=== PATIENT | female | born 1980 | race Caucasian/White ===

== ENCOUNTER 2017-02-04 08:15 | Emergency (ER) | payer OTHER ==
[2017-02-04] MEDS ORDERED: EPINEPHrine AMP 1 MG/ML SUBCUT ONE (08:25)
[2017-02-04] MEDS ORDERED: Famotidine IV* 10 MG/ML 2 ML (20 mg) IV SLOW PU ONE (08:25)
[2017-02-04] MEDS ORDERED: Dexamethasone IV* 4 MG/ML 5 ML VIAL (20 MG) IVPB ONE (08:25)
[2017-02-04] MEDS ORDERED: NS 0.9% 1000 ML* 1,000 ML IV ONE (08:26)
[2017-02-04 12:04] VITALS: BP 116/73
--- NOTE | 2017-02-05 15:39 | ED ---
Lisa Contreras Auryana, scribed for Sesar Serrano MD on 02/04/17 at 0927 . Allergic Reaction/Systemic - HPI Summary HPI Summary: 36 year old female presents to the ED s/p bee/wasp sting while on a bike ride this morning. 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 She also has SOB, pruritus behind the ears, dizziness - believes due to Benadryl, and reports that her lips "feel weird" but denies any lip swelling. 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 PMHx is significant for anaphylaxis to bee stings. - History of Current Complaint Chief Complaint: EDAllergicReaction Time Seen by Provider: 02/04/17 08:21 Hx Obtained From: Patient Hx Last Menstrual Period: ON CONTINUOUS CONTROL Onset/Duration: Sudden Onset, Started hours ago, Still Present Timing: Constant Severity Initially: Moderate Severity Currently: Moderate Pain Intensity: 5 Pain Scale Used: 0-10 Numeric Location: Discrete @ - chest Character: Pruritus - behind ears Associated Signs And Symptoms: Positive: Difficulty Breathing - SOB, Other: - dizziness, reports "lips feel weird". Negative: Throat Tightening - Related Hx Possible Reaction To: Insect - bee/wasp - Allergies/Home Medications Allergies/Adverse Reactions: Allergies Allergy/AdvReac Type Severity Reaction Status Date / Time Adhesive Tape Allergy Blisters Verified 02/08/16 18:48 Bee Venom Allergy Swelling Verified 02/08/16 18:48 CHLORPREP Allergy Severe Rash Uncoded 02/08/16 18:48 PMH/Surg Hx/FS Hx/Imm Hx Musculoskeletal History: Denies: Hx Rheumatoid Arthritis, Hx Osteoporosis - Surgical History Surgery Procedure, Year, and Place: LAPAROSCOPY TO REMOVE ADHESIONS FROM ENDOMETRIOSIS, BENIGN LUMPECTOMY Infectious Disease History: Denies: Traveled Outside the [place] in Last 30 Days - Family History Known Family History: Positive: Other - history of allergic reactions to bee venom Negative: Cardiac Disease, Hypertension, Diabetes - Social History Alcohol Use: Occasionally Alcohol Amount: TWICE PER WEEK Substance Use Type: Reports: None Smoking Status (MU): Never Smoked Tobacco Review of Systems Positive: Other - dizziness. Negative: Fever Eyes: Negative Positive: Other - reports lips "feel weird" Cardiovascular: Negative Positive: Shortness Of Breath Gastrointestinal: Negative Genitourinary: Negative Musculoskeletal: Negative Positive: Other - pruritus behind the ears Neurological: Negative Psychological: Normal All Other Systems Reviewed And Are Negative: Yes Physical Exam - Summary Physical Exam Summary: VITAL SIGNS: Reviewed. GENERAL: Patient is a well-developed and nourished female who is lying comfortable in the stretcher. Patient is not in any acute respiratory distress. HEAD AND FACE: No signs of trauma. No ecchymosis, hematomas or skull depressions. No sinus tenderness. EYES: PERRLA, EOMI x 2, No injected conjunctiva, no nystagmus. EARS: Hearing grossly intact. Ear canals and tympanic membranes are within normal limits. MOUTH: Oropharynx within normal limits. No lip swelling, no trismus, no trouble swallowing. NECK: Supple, trachea is midline, no adenopathy, no JVD, no carotid bruit, no c- spine tenderness, neck with full ROM. CHEST: Symmetric, no tenderness at palpation LUNGS: Clear to auscultation bilaterally. No wheezing or crackles. CVS: Regular rate and rhythm, S1 and S2 present, no murmurs or gallops appreciated. ABDOMEN: Soft, non-tender. No signs of distention. No rebound no guarding, and no masses palpated. Bowel sounds are normal. EXTREMITIES: FROM in all major joints, no edema, no cyanosis or clubbing. NEURO: Alert and oriented x 3. No acute neurological deficits. Speech is normal and follows commands. SKIN: Dry and warm. Triage Information Reviewed: Yes Vital Signs On Initial Exam: Initial Vitals Temp Pulse Resp BP Pulse Ox 97.3 F 97 20 138/91 100 02/04/17 08:16 02/04/17 08:16 02/04/17 08:16 02/04/17 08:16 02/04/17 08:16 Vital Signs Reviewed: Yes Diagnostics - Vital Signs Vital Signs Temp Pulse Resp BP Pulse Ox 02/04/17 08:16 97.3 F 97 20 138/91 100 - Laboratory Lab Statement: Any lab studies that have been ordered have been reviewed, and results considered in the medical decision making process. Re-Evaluation - Re-Evaluation First Eval Re-Evaluation Time: 09:28 Change: Improved Comment: Patient refused blood work. Second Eval Re-Evaluation Time: 11:41 - patient is feeling much better Allergic Reaction Course/Dx - Course Assessment/Plan: 36 year old female presents to the ED s/p bee/wasp sting while on a bike ride this morning. 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 She also has SOB, pruritus behind the ears, dizziness - believes due to Benadryl , and reports that her lips "feel weird" but denies any lip swelling. 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 PMHx is significant for anaphylaxis to bee stings. In ED course, she was given Decadron, epinephrine, Pepcid, and held Benadryl, since has already took 100 mg [employer]. Her symptoms resolved, and the patient is feeling better. She declined any blood work. The patient was observed for 4 hours, and the symptoms did not return. Therefore the patient will be discharged home with follow up to PCP. I discussed all the findings and test results with the patient. Patient was instructed to return to the emergency room immediately if any of the symptoms return or worsens. Plan of care was discussed with the patient and understands and agrees. All questions were answered at patient satisfaction. There were no further complaints or concerns. Lung exam before discharge: CTA B/L. Good air exchange. No wheezing or crackles heard. CVS: S1 and S2 present. No murmurs appreciated. Patient is alert and oriented x 3. Patient is hemodynamically stable. Patient will be discharged home with follow up PCP in the next 2-3 days - Diagnoses Differential Diagnosis/HQI/PQRI: Positive: Anaphylaxis, Local Allergic Reaction Provider Diagnoses: Allergic reaction Discharge - Discharge Plan Condition: Stable Disposition: HOME Prescriptions: Epinephrine [Epipen 2-Bull] 0.3 mg IM ONCE PRN #1 kit PRN Reason: Allergy Symptoms Famotidine TAB* [Pepcid 20 MG TAB*] 20 mg PO BID #10 tab diPHENhydraMINE PO* [Benadryl PO 25 MG TAB*] 25 mg PO TID PRN #30 tab PRN Reason: Allergy Symptoms predniSONE TAB* [Deltasone TAB*] 40 mg PO DAILY #8 tab Patient Education Materials: Anaphylaxis (ED), General Allergic Reaction (ED) Referrals: Jayda Fall MD [Primary Care Provider] - 2 Days Additional Instructions: 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 The documentation as recorded by the Lisa campa Auryana accurately reflects the service I personally performed and the decisions made by , Sesar Serrano MD.
== END 2017-02-04 12:03 | disposition home or self-care (01) ==
LOC: ED 08:15
DX: T78.40XA Allergy, unspecified, initial encounter (principal); R06.02 Shortness of breath; R42 Dizziness and giddiness; W57.XXXA Bitten or stung by nonvenomous insect and other nonvenomous arthropods, initial encounter
CPT/HCPCS: 96365; 96375; 99283; J0171

== ENCOUNTER 2018-07-04 11:49 | Emergency (ER) | payer OTHER ==
[2018-07-04] MEDS ORDERED: NS 0.9% 1000 ML* 1,000 ML IV ONE (12:59)
[2018-07-04] MEDS ORDERED: DiMENhydriNATE IV* 50 MG/ML VIAL IV PUSH ONE (13:08)
[2018-07-04 13:12] LABS: ABS Basophils 0 10^3/ul (0-0.2); ABS Eosinophils 0 10^3/ul (0-0.6); ABS Monocytes 0.4 10^3/ul (0-0.8); ABS Neutrophils 4.3 10^3/ul (1.5-7.7); ABS Nucleated RBC 0 10^3/ul; Eosinophil % 0.1 %; Hematocrit 38 % (35-47); Hemoglobin 12.7 g/dl (12.0-16.0); Lymphocyte % 17.4 %; Mean Corpuscular HGB Conc 33 g/dl (31-36); Mean Corpuscular Hemoglobin 32 pg (27-31); Mean Corpuscular Volume 96 fL (80-97); Mean Platelet Volume 7.2 fL (7.4-10.4); Nucleated Red Blood Cells % 0.1; Platelet Count 293 10^3/ul (150-450); Red Blood Count 3.96 10^6/ul (4.00-5.40); Red Cell Distribution Width 13 % (10.5-15); White Blood Count 5.7 10^3/ul (3.5-10.8)
--- NOTE | 2018-07-04 13:20 | ED ---
Dizziness - HPI Summary HPI Summary: This patient is a 38 year old female presenting to [facility] with a chief complaint of dizziness since yesterday. Patient states that yesterday, while at work, she felt uncharacteristically weak and tired. Patient states that when she got home , she felt the room spinning and had to lie down. The next morning, at 0700, when she made breakfast, sudden nausea caused her to vomit her food back up. Patient states that nausea did not seem like the same type of dizziness as the room spinning. The pain is rated 3/10 in severity. Symptoms aggravated by nothing. Symptoms alleviated by nothing. - History Of Current Complaint Chief Complaint: EDDizziness Stated Complaint: DIZZINESS/WEAKNESS/VOMITING Time Seen by Provider: 07/04/18 12:58 Hx Obtained From: Patient Onset/Duration: Still Present Timing: Constant Severity Initially: Moderate Severity Currently: Mild Character: Room Spinning, Dizzy Aggravating Factor(s): Nothing Alleviating Factor(s): Nothing Associated Signs And Symptoms: Positive: Nausea, Vomiting - Allergies/Home Medications Allergies/Adverse Reactions: Allergies Allergy/AdvReac Type Severity Reaction Status Date / Time Adhesive Tape Allergy Blisters Verified 07/04/18 11:52 bee venom protein (honey bee) Allergy Swelling Verified 07/04/18 11:52 CHLORPREP Allergy Severe Rash Uncoded 07/04/18 11:52 Home Medications: Home Medications [place] Thyroid 60 mg PO DAILY 07/04/18 [History Confirmed 07/04/18] PMH/Surg Hx/FS Hx/Imm Hx Previously Healthy: Yes Musculoskeletal History: Denies: Hx Rheumatoid Arthritis, Hx Osteoporosis Opthamlomology History: Denies: Hx Legally Blind EENT History: Denies: Hx Deafness - Surgical History Surgery Procedure, Year, and Place: LAPAROSCOPY TO REMOVE ADHESIONS FROM ENDOMETRIOSIS, BENIGN LUMPECTOMY Infectious Disease History: No Infectious Disease History: Denies: Traveled Outside the [place] in Last 30 Days - Family History Known Family History: Positive: Other - history of allergic reactions to bee venom Negative: Cardiac Disease, Hypertension, Diabetes - Social History Alcohol Use: Occasionally Alcohol Amount: TWICE PER WEEK Hx Substance Use: No Substance Use Type: Reports: None Hx Tobacco Use: No Smoking Status (MU): Never Smoked Tobacco Review of Systems Negative: Fever Positive: Vomiting, Nausea Neurological: Other - dizziness, room spinning All Other Systems Reviewed And Are Negative: Yes Physical Exam - Summary Physical Exam Summary: Appearance: Well appearing, no pain distress Skin: warm, dry, reflects adequate perfusion Head/face: normal Eyes: EOMI, ELIJAH ENT: mucous membranes moist, sinus non-tender, pharynx normal, serous effusion of left ear. Neck: supple, non-tender Respiratory: CTA, breath sounds present Cardiovascular: RRR, pulses symmetrical Abdomen: non-tender, soft Bowel Sounds: present Musculoskeletal: normal, strength/ROM intact Neuro: normal, sensory motor intact, A&Ox3, negative hallpike test Triage Information Reviewed: Yes Vital Signs On Initial Exam: Initial Vitals Temp Pulse Resp BP Pulse Ox 98.9 F 70 16 149/95 100 07/04/18 11:52 07/04/18 11:52 07/04/18 11:52 07/04/18 11:52 07/04/18 11:52 Vital Signs Reviewed: Yes Diagnostics - Vital Signs Vital Signs Temp Pulse Resp BP Pulse Ox 07/04/18 11:52 98.9 F 70 16 149/95 100 - Laboratory Lab Results: Lab Results 07/04/18 Range/Units 13:01 WBC 5.7 (3.5-10.8) 10^3/ul RBC 3.96 L (4.00-5.40) 10^6/ul Hgb 12.7 (12.0-16.0) g/dl Hct 38 (35-47) % MCV 96 (80-97) fL MCH 32 H (27-31) pg MCHC 33 (31-36) g/dl RDW 13 (10.5-15) % Plt Count 293 (150-450) 10^3/ul MPV 7.2 L (7.4-10.4) fL Neut % (Auto) 75.0 % Lymph % (Auto) 17.4 % [place] % (Auto) 7.1 % Eos % (Auto) 0.1 % Baso % (Auto) 0.4 % Absolute Neuts (auto) 4.3 (1.5-7.7) 10^3/ul Absolute Lymphs (auto) 1.0 (1.0-4.8) 10^3/ul Absolute Monos (auto) 0.4 (0-0.8) 10^3/ul Absolute Eos (auto) 0 (0-0.6) 10^3/ul Absolute Basos (auto) 0 (0-0.2) 10^3/ul Absolute Nucleated RBC 0 10^3/ul Nucleated RBC % 0.1 Result Diagrams: 07/04/18 13:01 07/04/18 13:01 Lab Statement: Any lab studies that have been ordered have been reviewed, and results considered in the medical decision making process. - EKG 1310 Cardiac Rate: NL EKG Rhythm: Sinus Rhythm - 70 BPM Summary of EKG Findings: An EKG, taken 1310, reveals NSR (70 BPM), Normal axis. Normal interval. Normal ST. Dizzy Course/Dx - Course Course Of Treatment: Nurse's notes reviewed. Patient with small serous effusion in the left ear. Some popping has been felt better. No significant vertigo at present. Patient was hydrated and given IV Dramamine with full relief. She is able to move about without any vertigo. No other sign of posterior infarct. Discharged in good condition. - Diagnoses Differential Diagnosis/HQI/PQRI: Benign Paroxysmal Positional Vertigo, Labyrinthitis, Medication Reaction, Metabolic Abnormality, Transient Ischemic Attack Provider Diagnoses: Labyrinthitis, Vertigo Discharge - Sign-Out/Discharge Documenting (check all that apply): Patient Departure - Discharge Plan Condition: Improved Disposition: HOME Prescriptions: Meclizine HCl 25 mg PO TID PRN #30 tab.chew PRN Reason: Dizziness Pseudoephedrine TAB* [Sudafed TAB*] 30 mg PO TID #15 tab Patient Education Materials: Labyrinthitis (ED), Vertigo (ED) Referrals: Jayda Fall MD [Primary Care Provider] - Additional Instructions: Drink plenty of fluids. Return with headache, weakness, difficulty with vision , uncontrolled dizziness, worse or other concerns. Do not drive while taking medication or while feeling dizzy. Follow up with your primary care physician on Friday. - Billing Disposition and Condition Condition: IMPROVED Disposition: Home - Attestation Statements Document Initiated by Scribe: Yes Documenting Scribe: Gladis Kent Provider For Whom Shonibe is Documenting (Include Credential): aMnny Bates MD Scribe Attestation: Gladis Contreras, scribed for Manny Bates MD on 07/04/18 at 1521. Scribe Documentation Reviewed: Yes Provider Attestation: The documentation as recorded by the shonibGladis hand accurately reflects the service I personally performed and the decisions made by me, Manny Bates MD Status of [place] Document: Viewed
[2018-07-04 13:34] LABS: EGFR Non-African American 65.4 (>60)
[2018-07-04 14:29] VITALS: BP 135/76
== END 2018-07-04 14:29 | disposition home or self-care (01) ==
LOC: ED 11:49
DX: H83.09 Labyrinthitis, unspecified ear (principal); R42 Dizziness and giddiness; R11.2 Nausea with vomiting, unspecified
CPT/HCPCS: 36415; 80053; 84702; 85025; 86140; 93005; 96361; 96374; 99282; J1240

== ENCOUNTER 2019-01-24 17:21 | Emergency (ER) | payer OTHER ==
[2019-01-24] MEDS ORDERED: predniSONE TAB* 20 MG PO ONE (18:01)
[2019-01-24] MEDS ORDERED: Famotidine TAB* 20 MG PO ONE (18:01)
--- NOTE | 2019-01-24 19:21 | ED ---
Allergic Reaction/Systemic - HPI Summary HPI Summary: 38-year-old female presents with allergic reaction today. States she was stung by a bee. States she's had a bad reaction to bee stings in the past. Patient already took some Benadryl. She denies any rash across body. Denies any chest pain. admits to some chest tightness. Denies any bowel pain. denies any nausea vomiting. No difficulty swallowing. No sore throat or tongue swelling. Does admit to feeling a little bit anxious. - History of Current Complaint Chief Complaint: EDAllergicReaction Time Seen by Provider: 01/24/19 17:49 Hx Last Menstrual Period: ON CONTINUOUS CONTROL Pain Intensity: 3 - Allergies/Home Medications Allergies/Adverse Reactions: Allergies Allergy/AdvReac Type Severity Reaction Status Date / Time Adhesive Tape Allergy Blisters Verified 01/24/19 17:27 bee venom protein (honey bee) Allergy Swelling Verified 01/24/19 17:27 CHLORPREP Allergy Severe Rash Uncoded 07/04/18 11:52 PMH/Surg Hx/FS Hx/Imm Hx Endocrine/Hematology History: Denies: Hx Anticoagulant Therapy Respiratory History: Denies: Hx Asthma Musculoskeletal History: Denies: Hx Rheumatoid Arthritis, Hx Osteoporosis Sensory History: Denies: Hx Legally Blind, Hx Deafness Opthamlomology History: Denies: Hx Legally Blind - Surgical History Surgery Procedure, Year, and Place: LAPAROSCOPY TO REMOVE ADHESIONS FROM ENDOMETRIOSIS, BENIGN LUMPECTOMY Infectious Disease History: No Infectious Disease History: Denies: Traveled Outside the [place] in Last 30 Days - Family History Known Family History: Positive: Other - history of allergic reactions to bee venom Negative: Cardiac Disease, Hypertension, Diabetes - Social History Alcohol Use: Occasionally Alcohol Amount: TWICE PER WEEK Hx Substance Use: No Substance Use Type: Reports: None Hx Tobacco Use: No Smoking Status (MU): Never Smoked Tobacco Review of Systems Negative: Fever Negative: Chest Pain Positive: Shortness Of Breath Negative: Abdominal Pain Positive: Rash All Other Systems Reviewed And Are Negative: Yes Physical Exam Triage Information Reviewed: Yes Vital Signs On Initial Exam: Initial Vitals Temp Pulse Resp BP Pulse Ox 98.0 F 105 16 160/96 100 01/24/19 17:22 01/24/19 17:22 01/24/19 17:22 01/24/19 17:22 01/24/19 17:22 Vital Signs Reviewed: Yes Appearance: Positive: Well-Appearing Skin: Positive: Warm, Dry, Other - bee sting on abd Head/Face: Positive: Normal Head/Face Inspection Eyes: Positive: Normal, Conjunctiva Clear ENT: Positive: Pharynx normal Respiratory/Lung Sounds: Positive: Clear to Auscultation, Breath Sounds Present Cardiovascular: Positive: Normal, RRR Abdomen Description: Positive: Nontender, Soft Bowel Sounds: Positive: Present Musculoskeletal: Positive: Normal Neurological: Positive: Normal Psychiatric: Positive: Normal Diagnostics - Vital Signs Vital Signs Temp Pulse Resp BP Pulse Ox 01/24/19 18:01 98 100 01/24/19 17:59 102 151/102 97 01/24/19 17:22 98.0 F 105 16 160/96 100 - Laboratory Lab Statement: Any lab studies that have been ordered have been reviewed, and results considered in the medical decision making process. Re-Evaluation - Re-Evaluation First Eval Re-Evaluation Time: 19:30 Change: Improved Comment: symptoms improved Allergic Reaction Course/Dx - Course Course Of Treatment: 38-year-old female presents with allergic reaction today. States she was stung by a bee. States she's had a bad reaction to bee stings in the past. Patient already took some Benadryl. She denies any rash across body. Denies any chest pain. admits to some chest tightness. Denies any bowel pain. denies any nausea vomiting. No difficulty swallowing. No sore throat or tongue swelling. Does admit to feeling a little bit anxious. On exam pharynx normal. lung clear to Auscultation. Abdomen soft nontender. Has minimal erythema around the bee sting on her abdomen. Gave doser of prednisone and feeling better. Will prescribe prednisone for next couple days. Told to return if develop any worsening symptoms. Patient understands agrees plan. - Diagnoses Differential Diagnosis/HQI/PQRI: Positive: Anaphylaxis, Local Allergic Reaction , Urticaria Provider Diagnoses: Bee sting Discharge - Sign-Out/Discharge Documenting (check all that apply): Patient Departure Patient Received Moderate/Deep Sedation with Procedure: No - Discharge Plan Condition: Good Disposition: HOME Prescriptions: predniSONE TAB* [Deltasone TAB*] 50 mg PO DAILY #4 tab Patient Education Materials: Insect Bite or Sting (ED) Referrals: Jayda Fall MD [Primary Care Provider] - Additional Instructions: Take Benadryl every 6 hours Take steroid once a day for 4 days starting tomorrow Return to ED if shortness of breath, chest pain, or if develop any new or worsening symptoms - Billing Disposition and Condition Condition: GOOD Disposition: Home
[2019-01-24 19:42] VITALS: BP 134/77
== END 2019-01-24 19:41 | disposition home or self-care (01) ==
LOC: ED 17:21
DX: T63.441A Toxic effect of venom of bees, accidental (unintentional), initial encounter (principal); Z88.8 Allergy status to other drugs, medicaments and biological substances
CPT/HCPCS: 99282; A9270-GY; J7512